=== PATIENT | male | born 1960 | race Caucasian/White ===

== ENCOUNTER 2023-04-23 08:58 | Day surgery (SDC) | payer OTHER, SELFPAY ==
[2023-04-23] VITALS (9 sets, daily range): BP systolic 104–140; BP diastolic 66–83; PULSE 57–67; RESP 12–57; TEMP 36.2–36.5; O2SAT 20–100; BMI 24.1
--- NOTE | 2023-04-23 | PATH_ITS ---
[facility] Accession Number: [id number] No. of containers..01 Tissue . 01 Material submitted: . esophagus - MID ESOPHAGEAL POLYP . 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 Please see comment. Negative for dysplasia and malignancy. Additional step sections examined. MRV 05/05/20238 Local . 01 Comment: In the proper clinical setting, the histopathologic appearance would support a clinical impression of eosinophilic esophagitis. The differential diagnosis includes drug reaction, gastroesophageal reflux, and food allergies. . . 01 Electronically signed: . Alfredo Bryant MD, PhD, Pathologist NPI- [id number] . 01 Gross description: . MID ESOPHAGEAL POLYP: Received in formalin is 1 fragment(s) of crowder, soft tissue measuring 0.3 x 0.3 x 0.2 cm submitted entirely in 1 cassette(s) /JIMMIE 04/24/2023 2237 Local . 01 Microscopic: . A PAS stain is performed to evaluate for fungal organisms and is negative. A control stain shows appropriate reactivity. . 01 Pathologist provided ICD-10: K22.81, K20.0 . 01 CPT . 767155, 777584 Specimen Comment: A courtesy copy of this report has been sent to [phone] Performed at: 01 [facility] [address] [place] [address], [place], [place] [id number] MD Bautista Stevens MD Phone: [phone]
--- NOTE | 2023-04-23 09:06 | ED_ITS ---
HPI - Abdominal Pain General Chief Complaint: Skin/Abscess/Foreign Body Stated Complaint: Blockage in esophagus/ unable to eat or drink T-2 Time Seen by Provider: 04/23/23 09:01 Source: patient, RN notes reviewed and old records reviewed Mode of arrival: Ambulatory Limitations: no limitations History of Present Illness HPI narrative: 62-year-old male with history of prior food impaction and EGD. Patient states l ast night he had some fried chicken at a meeting he states that since then he is tried to clear it at home with carbonated beverages without any improvement and presents this morning. He states he has been having to spit up his saliva. Patient states he is had 2 prior episodes that have required intervention in the 1 was greater than 5 years ago he was seen here had an EGD and the food bolus was removed. He states the time prior to that he had been having steak and had an EGD with success. He then had a barium swallow and was told they suspected a Schatzki ring but when he had his EGD here he states the surgeon told him they did not see Schatzki ring. He has not had any dilation or other interventions. Patient states he is usually careful with his diet and will occasionally get symptoms but able to clear on his own. Denies any other symptoms no fevers or chills. No chest pain or shortness of breath. No abdominal back or flank pain no other GI or urinary symptoms. He states no daily medications. Denies any other prior surgeries besides EGDs. No known drug allergies. No tobacco, occasional alcohol, no recreational drugs. Related Data Allergies Allergy/AdvReac Type Severity Reaction Status Date / Time No Known Drug Allergies Allergy Verified 04/23/23 09:04 Review of Systems Review of Systems ROS Unobtainable: All systems reviewed & are unremarkable except as noted in HPI and below Patient History Social History Smoking Status: Never smoker Exam Narrative Exam Narrative: GENERAL: Alert and oriented x three, tall thin, well-appearing male in mild distress. HEENT: Head normocephalic, atraumatic, EOMI, pupils reactive, face symmetric, moist mucous membranes NECK: Supple, full range of motion CARDIOVASCULAR: Regular rate and rhythm without murmurs, rubs or gallops. RESPIRATORY: Breath sounds equal bilaterally, no wheezes rales or rhonchi. ABDOMEN: Soft, nontender. Normoactive bowel sounds all 4 quadrants. No guarding or rebound, rigidity, no mass. Patient is spitting small amounts of saliva into paper towels. : No CVA tenderness EXTREMITIES: Normal range of motion, no clubbing or edema. Neurovascularly intact NEUROLOGICAL: Cranial nerves II through XII grossly intact. Moving all extremities SKIN: Warm, dry, no petechiae, no rashes or lesions. Initial Vital Signs Initial Vital Signs: Vital Signs Temperature 97.7 F 04/23/23 09:04 Pulse Rate 64 04/23/23 09:04 Respiratory Rate 18 04/23/23 09:04 Blood Pressure 140/70 04/23/23 09:04 Pulse Oximetry 100 04/23/23 09:04 Oxygen Delivery Method Room Air 04/23/23 09:04 Course Orders Ordered: Sodium Chloride (Normal Saline 0.9%) 1,000 mls @ 200 mls/hr IV CONT LORENZO Last Admin: 04/23/23 09:44 Dose: 200 mls/hr Documented By: KATLIN Lactated Ringer's (Lactated Ringers) 1,000 mls @ 42 mls/hr IV CONT LORENZO Discontinued Medications Glucagon (Glucagon,Human Recombinant 1 Mg/Ml Vial) 1 mg IV NOW ONE Stop: 04/23/23 09:07 Last Admin: 04/23/23 09:25 Dose: 1 mg Documented By: KATLIN Vital Signs Vital signs: Vital Signs - 8 hr 04/23/23 09:04 04/23/23 09:36 Temperature 97.7 F Pulse Rate 64 61 Respiratory Rate 18 20 Blood Pressure 140/70 140/70 Pulse Oximetry 100 98 Oxygen Delivery Method Room Air Room Air MDM - Abdominal Pain MDM Narrative Medical decision making narrative: Patient has history and symptoms consistent with esophageal food bolus. Patient received glucagon IV with carbonated beverage. Patient had immediate output of carbonated beverage without any success. Patient is otherwise tolerating well. Spoke with Dr. Jaeger who plans to scope today. Patient had fluids ordered. NPO status at this time. Discharge Plan Departure Patient Disposition: Admitted to Surgery Clinical Impression: Esophageal obstruction due to food impaction Admit Date/Time: 04/23/23 09:39 Admit Provider: Neal Jaeger
[2023-04-23] MEDS: GLUCAGON,HUMAN RECOMBINANT 1 MG/ML VIAL IV (09:25)
--- NOTE | 2023-04-23 09:30 | PC.NURSE ---
Pt presented to the ED today with complaints of having a piece of food stuck in his esophagus. Pt has had this happen in the past and he reports having to go to surgery for endoscopy removal. Pt reports having nausea and not being able to eat or drink anything for approximately 24hours. Pt has tried drinking bubbly liquids at home to try and loosen the food stuck in his throat to no avail. he has been using a paper towel to spit into because it is difficult to swallow saliva. Pt is a&ox4. No sob or difficulty breathing is noted. Pt able to speak in full sentences. MARKETING CLERK intact. Dr Santillan at bedside during triage.
[2023-04-23] MEDS: SODIUM CHLORIDE 0.9% 1,000 ML 200 ML IV (09:44)
--- NOTE | 2023-04-23 11:07 | ED.SKABFB ---
HPI - Skin/Abscess/Foreign Bdy General Chief complaint: Skin/Abscess/Foreign Body Stated complaint: Blockage in esophagus/ unable to eat or drink T-2 Time Seen by Provider: 04/23/23 09:01 Source: patient, RN notes reviewed and old records reviewed Mode of arrival: Ambulatory Limitations: no limitations Related Data Allergies Allergy/AdvReac Type Severity Reaction Status Date / Time No Known Drug Allergies Allergy Verified 04/23/23 09:04 Patient History Social History Smoking Status: Never smoker Smoking Status: Never smoker alcohol intake frequency: a few times a month Substance Use Type: does not use Exam Initial Vital Signs Initial Vital Signs: Vital Signs Temperature 97.7 F 04/23/23 09:04 Pulse Rate 64 04/23/23 09:04 Respiratory Rate 18 04/23/23 09:04 Blood Pressure 140/70 04/23/23 09:04 Pulse Oximetry 100 04/23/23 09:04 Oxygen Delivery Method Room Air 04/23/23 09:04 Course Orders Ordered: Sodium Chloride (Normal Saline 0.9%) 1,000 mls @ 200 mls/hr IV CONT LORENZO Last Admin: 04/23/23 09:44 Dose: 200 mls/hr Documented By: MPO Lactated Ringer's (Lactated Ringers) 1,000 mls @ 42 mls/hr IV CONT LORENZO Lactated Ringer's (Lactated Ringers) 1,000 mls @ 42 mls/hr IV CONT LORENZO Discontinued Medications Glucagon (Glucagon,Human Recombinant 1 Mg/Ml Vial) 1 mg IV NOW ONE Stop: 04/23/23 09:07 Last Admin: 04/23/23 09:25 Dose: 1 mg Documented By: MPO Vital Signs Vital signs: Vital Signs - 8 hr 04/23/23 09:04 04/23/23 09:36 Temperature 97.7 F Pulse Rate 64 61 Respiratory Rate 18 20 Blood Pressure 140/70 140/70 Pulse Oximetry 100 98 Oxygen Delivery Method Room Air Room Air Discharge Plan Departure Patient Disposition: Admitted to Surgery Clinical Impression: Esophageal obstruction due to food impaction Admit Date/Time: 04/23/23 09:39 Admit Provider: Neal Jaeger
[2023-04-23] MEDS: ACETAMINOPHEN IV 1,000 MG/100 ML VIAL 400 MG IV (11:18)
[2023-04-23] MEDS: LACTATED RINGERS 1,000 ML 42 ML IV (11:56)
--- NOTE | 2023-04-23 12:10 | PM.HP.1 ---
History of Present Illness History of Present Illness Date Patient Seen: 04/23/23 Time Patient Seen: 12:10 Chief complaint: Blockage in esophagus/ unable to eat or drink T-2 Narrative: Jose Juan is a 62-year-old man who presents with an esophageal food impaction. He was eating piece of chicken last night. He has had to spit out some of his secretions. He has had it happen twice before. The first time it resolved on its own. The second time he had to have an esophagogastroduodenoscopy here with piecemeal removal. [facility] Social History household members: spouse Smoking Status: Never smoker Meds Home Medications and Allergies Allergies Allergy/AdvReac Type Severity Reaction Status Date / Time No Known Drug Allergies Allergy Verified 04/23/23 09:04 Exam Vital Signs (past 8 hours): - 04/23/23 09:04 04/23/23 09:36 04/23/23 09:48 Temperature 97.7 F Pulse Rate 64 61 61 Respiratory Rate 18 20 Blood Pressure 140/70 140/70 Pulse Oximetry 100 98 99 Oxygen Delivery Method Room Air Room Air Oxygen Flow Rate 04/23/23 10:00 04/23/23 10:17 04/23/23 10:17 Temperature Pulse Rate 61 62 Respiratory Rate Blood Pressure 121/68 Pulse Oximetry 99 99 Oxygen Delivery Method Oxygen Flow Rate 04/23/23 11:46 Temperature 97.1 F L Pulse Rate 57 L Respiratory Rate 57 H Blood Pressure 134/83 Pulse Oximetry 20 L Oxygen Delivery Method Room Air Oxygen Flow Rate 98 Oxygen Delivery Method Room Air Oxygen Flow Rate 98 Const General: No in distress Resp Effort & Inspection: normal respiratory effort Assessment & Plan Assessment and plan (1) Esophageal obstruction due to food impaction: Status: Acute Plan Jose Juan is a 62-year-old man with an esophageal food impaction. We reviewed the risks and benefits of esophagogastroduodenoscopy with removal of the foreign body. He would like to proceed.
--- NOTE | 2023-04-23 12:51 | PM.OP.EGD ---
Operative Date/Time/Diagnoses Date of procedure: 04/23/23 Time of procedure: 12:52 Pre-op diagnosis: Esophageal food impaction Post-op diagnosis: same Procedure & Clinicians Study performed: Esophagogastroduodenoscopy with removal of esophageal food impaction Same procedure as scheduled: Yes Surgeon: Neal Jaeger Procedure Notes Procedure in detail: Surgeon: Neal Jaeger MD Anesthesia: Eloisa Marin CRNA A timeout was performed. A bite blocked was placed. The patient was positioned in the supine position. General endotracheal anesthesia was administered. The endoscope was inserted through the bite block and passed through the esophagus. There was a food bolus consisting of white chicken meat in the distal esophagus. The chicken was wedged fairly tightly in the esophagus. Initial attempts at dilating the esophagus pneumatically were unsuccessful. Next, the standard cold forceps was inserted and the chicken meat was picked apart until the remainder of the food bolus could be pushed into the stomach. Once the scope was in the stomach it was advanced to the pylorus which appeared normal. Retroflexion demonstrated no obvious abnormalities within the stomach. The scope was then withdrawn into the esophagus and a few residual strands of chicken meat were visualized. We then sat the patient nearly upright and gently irrigated the residual chicken back down into stomach. No further chicken fibers were seen. The mucosa in the distal esophagus was quite friable and edematous and could not be easily assessed. There were a few polyps in the mid esophagus and 1 was biopsied with the cold forceps and sent as ?mid esophageal polyp. The scope was withdrawn. Sedation time: 35 minutes Findings: Esophageal food bolus the distal esophagus and mid esophageal polyp Post-procedure Plan for aftercare: Repeat EGD in 2-4 weeks to evaluate the distal esophagus Disposition: PACU
== END 2023-04-23 13:22 | disposition home or self-care (01) ==
LOC: ED 09:38 → AC 09:47 → ENDO 04-24 07:00
PROVIDERS: Emergency Provider Emergency Medicine; Family Provider Family Medicine; PCP Family Medicine; Referring Provider Emergency Medicine; Visit Provider Surgery
PROC: 0DJ08ZZ Inspection of Upper Intestinal Tract, Via Natural or Artificial Opening Endoscopic (ICD-10-PCS; CPT 43235; principal; 2023-04-23 12:30)
DX: T18.128A Food in esophagus causing other injury, initial encounter (principal)
CPT/HCPCS: 43247; 36415; 99221; 99284; G0378; J0131; J0330; J1100; J1610; J2405; J2704; J3010

== ENCOUNTER 2024-02-29 07:19 | Day surgery (SDC) | payer MEDICARE, OTHER, SELFPAY ==
--- NOTE | 2024-02-29 | PATH_ITS ---
[facility] Accession Number: [id number] No. of containers..01 Tissue . 01 Material submitted: . esophagus, E-G Junction - GE JUNCTION . 01 Diagnosis: GE JUNCTION: Gastroesophageal junction mucosa with markedly increased intraepithelial eosinophils (greater than 50 per high power field). No goblet cell metaplasia or dysplasia identified. See comment. . Specimen Comments: The presence of markedly increased intraepithelial eosinophils in the distal esophagus could represent either reflux or involvement by eosinophilic esophagitis. Correlation with clinical features is needed for further evaluation. [facility] 03/05/20241215 Local . 01 Electronically signed: . Bautista Stevens MD, Pathologist NPI- [id number] . 01 Gross description: . Received in formalin with two patient identifiers and GE junction, are two crowder soft tissue fragments, 0.3 to 0.4 cm in greatest dimension, submitted in A1. ([id number]) /MRV 03/05/2024 121 Local . 01 Microscopic: . GE JUNCTION: An ABPAS stain was performed to evaluate for goblet cell metaplasia or fungal organisms and is negative. The control stains appropriately. . 01 Pathologist provided ICD-10: K21.00 . 01 CPT . 415301, 474922 Specimen Comment: A courtesy copy of this report has been sent to [phone] Performed at: 01 [facility] [address], [place], [place] [id number] MD Bautista Stevens MD Phone: [phone]
[2024-02-29 07:40] VITALS: BP 126/70; PULSE 62; RESP 16; TEMP 35.7; O2SAT 100
--- NOTE | 2024-02-29 08:07 | PM.HP.1 ---
History of Present Illness History of Present Illness Date Patient Seen: 02/29/24 Time Patient Seen: 08:07 Chief complaint: EGD w/poss bx Narrative: Royce is a 63-year-old man who had in his half go gastroduodenostomy appy earlier this year for an esophageal food impaction. He has not had any further episodes of esophageal food impactions since then but he does occasionally notice a sensation of food sticking in his esophagus when he swallows. It always eventually resolves. [facility] Social History household members: spouse Smoking Status: Never smoker alcohol intake: current Meds Home Medications and Allergies Home Medications Medication Instructions Recorded Confirmed Type No Known Home Medications 11/27/23 02/29/24 History Allergies Allergy/AdvReac Type Severity Reaction Status Date / Time No Known Drug Allergies Allergy Verified 02/29/24 07:30 Exam Vital Signs (past 8 hours): - 02/29/24 07:40 Temperature 96.2 F L Pulse Rate 62 Respiratory Rate 16 Blood Pressure 126/70 Pulse Oximetry 100 Oxygen Delivery Method Room Air Oxygen Delivery Method Room Air Const General: healthy appearing Assessment & Plan Assessment and plan (1) Difficulty swallowing: Qualifiers: Dysphagia type: esophageal phase Qualified Code(s): R13.19 - Other dysphagia Status: Acute Plan We discussed the role of esophagogastroduodenoscopy. I will make sure that there are no abnormal changes in the lining of his esophagus. We also talked about the role of esophageal dilation but we will keep that option available for future episodes of dysphagia. Time-Based Coding :: [TOTAL MINUTES] spent with patient and on the chart (including review of chart, obtaining history, exam, reviewing outside data, placing orders, documenting exam and treatment plan, and counseling patient) on [DATE].
--- NOTE | 2024-02-29 08:28 | PM.OP.EGD ---
Operative Date/Time/Diagnoses Date of procedure: 02/29/24 Time of procedure: 08:28 Pre-op diagnosis: Dysphagia Post-op diagnosis: same Procedure & Clinicians Study performed: Esophagogastroduodenoscopy Same procedure as scheduled: Yes Surgeon: Neal Jaeger Procedure Notes Procedure in detail: Surgeon: Neal Jaeger MD Anesthesia: Andrey Damon MD A timeout was performed. A bite blocked was placed. The patient was positioned in the left lateral decubitus position. Anesthesia was administered. The endoscope was inserted through the bite block and passed through the esophagus and stomach and into the duodenum. The duodenal mucosa appeared normal. The scope was withdrawn into the duodenal bulb and no abnormalities were seen. The scope was withdrawn into the stomach. No abnormalities were seen. The scope was retroflexed and a small hiatal hernia was noted. The scope was withdrawn into the esophagus and there was a small patch of irregular tissue at the GE junction probably less than 1 cm. It was the same color as the surrounding mucosa. It was slightly raised. Biopsies were taken with cold forceps. The remainder of the esophagus was normal. The scope was withdrawn. The patient was awakened and brought to recovery. Sedation time: 6 minutes Findings: Small patch of irregular mucosa at the GE junction Post-procedure Disposition: PACU
[2024-02-29 08:29] VITALS: BP 88/55; PULSE 47; RESP 15; TEMP 36.6; O2SAT 96
[2024-02-29 08:33] VITALS: BP 93/60; PULSE 48; RESP 14; O2SAT 97
[2024-02-29 08:35] VITALS: BP 86/60; PULSE 50; RESP 16; O2SAT 99
[2024-02-29 08:42] VITALS: BP 98/63; PULSE 52; RESP 16; TEMP 36.1; O2SAT 99
== END 2024-02-29 08:44 | disposition home or self-care (01) ==
PROVIDERS: Family Provider Family Medicine; PCP Family Medicine; Referring Provider Surgery; Visit Provider Surgery
PROC: 0DJ08ZZ Inspection of Upper Intestinal Tract, Via Natural or Artificial Opening Endoscopic (ICD-10-PCS; CPT 43239; principal; 2024-02-29 08:15)
DX: R13.10 Dysphagia, unspecified (principal); K44.9 Diaphragmatic hernia without obstruction or gangrene
CPT/HCPCS: 43239; J2704